=== PATIENT | female | born 1960 | race Two or more races ===

== ENCOUNTER 2020-05-19 14:06 | Outpatient (CLI) | payer OTHER | END 2020-05-19 15:50 | disposition home or self-care (01) | LOC: NUCLEAR 14:06 | PROVIDERS: ATTEND Internal Medicine Sports Medicine | DX: C73 Malignant neoplasm of thyroid gland (principal); E89.0 Postprocedural hypothyroidism | CPT/HCPCS: 79005; A9517 ==

== ENCOUNTER → 2020-05-23 | Outpatient (CLI) | payer OTHER | END | disposition home or self-care (01) | LOC: NUCLEAR 11:33 | PROVIDERS: ATTEND Internal Medicine Sports Medicine | DX: C73 Malignant neoplasm of thyroid gland (principal); E89.0 Postprocedural hypothyroidism ==

== ENCOUNTER 2021-07-09 11:01 | Outpatient (CLI) | payer OTHER | END 2021-07-09 11:13 | disposition home or self-care (01) | LOC: SONOGRAMA 11:01 | PROVIDERS: ATTEND Surgery | DX: D09.3 Carcinoma in situ of thyroid and other endocrine glands (principal); E04.1 Nontoxic single thyroid nodule ==

== ENCOUNTER 2021-08-14 12:51 | Outpatient (CLI) | payer OTHER | END 2021-08-14 12:52 | disposition home or self-care (01) | LOC: NUCLEAR 12:51 | PROVIDERS: ATTEND Internal Medicine Sports Medicine | DX: C73 Malignant neoplasm of thyroid gland (principal) | CPT/HCPCS: 79005; A9517 ==